=== PATIENT | male | born 1950 | race Hispanic/Latino ===

== ENCOUNTER → 2018-11-07 | Outpatient (CLI) | payer OTHER ==
[~2018-11-07] MED LIST: AMLO5TAB9 PO; ATOR40TA71 PO; CHOL100040 PO; CLOP75TA32 PO; FERR324T8 PO; FOLI0.8T2 PO; GABA-531 PO; HYDR-4154 PO; HYDR25TA PO; INSLAN SQ; INSREG SQ; ISOS30TA6 PO; LEVO125T11 PO; LOSA50TA64 PO; METOPROLOL PO; RANO500T3 PO; TRAM50TA4 PO; [UNRECOGNIZED DRUG - OTHER] PO
== END | disposition home or self-care (01) ==
LOC: SHCH 09:11
PROVIDERS: ATTEND Internal Medicine Cardiovascular Disease
DX: I73.9 Peripheral vascular disease, unspecified (principal)
CPT/HCPCS: 93925

== ENCOUNTER → 2018-12-18 | Outpatient (CLI) | payer OTHER | END | disposition home or self-care (01) | LOC: SHCH 08:58 | PROVIDERS: ATTEND Internal Medicine Cardiovascular Disease | DX: I65.23 Occlusion and stenosis of bilateral carotid arteries (principal) | CPT/HCPCS: 93880 ==

== ENCOUNTER → 2019-01-03 | Outpatient (CLI) | payer OTHER | END | disposition home or self-care (01) | LOC: SHCH 08:53 | PROVIDERS: ATTEND Internal Medicine Cardiovascular Disease | DX: I87.2 Venous insufficiency (chronic) (peripheral) (principal) | CPT/HCPCS: 93971 ==

== ENCOUNTER → 2019-11-21 | Outpatient (CLI) | payer MEDICARE ==
[~2019-11-21] MED LIST changes: +CITA-107 PO; +DOCU100T9 PO; +INSU100V12 SQ; +ISOS60TA4 PO; +VITA1CAP PO
== END | disposition home or self-care (01) ==
LOC: SHCH 13:26
PROVIDERS: ATTEND Internal Medicine Cardiovascular Disease
DX: R06.09 Other forms of dyspnea (principal)
CPT/HCPCS: 93306

== ENCOUNTER → 2019-11-24 | Outpatient (CLI) | payer MEDICARE ==
[~2019-11-24] MED LIST changes: +REGADENOSON 0.4 MG/5 ML PF SYG IVP SCH
== END | disposition home or self-care (01) ==
LOC: SHCH 08:07
PROVIDERS: ATTEND Internal Medicine Cardiovascular Disease
DX: R06.09 Other forms of dyspnea (principal); R07.9 Chest pain, unspecified
CPT/HCPCS: 78452; 93017; 96374; A9500 ×2; J2785

== ENCOUNTER 2019-11-26 05:48 | Day surgery (SDC) | payer MEDICARE ==
[~2019-11-26] VITALS: Ht 165.1 cm; Wt 86.2 kg
[~2019-11-26 05:48] MED LIST changes: +AMLO-257 PO; -AMLO5TAB9 PO; -CITA-107 PO; -DOCU100T9 PO; -INSU100V12 SQ; -ISOS60TA4 PO; -REGADENOSON 0.4 MG/5 ML PF SYG IVP SCH; -VITA1CAP PO
[2019-11-26] MEDS ORDERED: SODIUM CHLORIDE 0.9% 1000ML 1,000 ML IV ONE (06:20)
[2019-11-26 07:25] VITALS: BP 190/69
[2019-11-26] MEDS ORDERED: ISOS60TA4 PO (07:38)
[2019-11-26] MEDS ORDERED: VITA1CAP PO (07:41)
[2019-11-26] MEDS ORDERED: INSU100V12 SQ (07:41)
[2019-11-26] MEDS ORDERED: CITA-107 PO (07:41)
[2019-11-26] MEDS ORDERED: INSREG SQ (07:41)
[2019-11-26] MEDS ORDERED: DOCU100T9 PO (07:42)
[2019-11-26] MEDS ORDERED: LIDOCAINE HCL 1% 20 ML VIAL ONE (07:45)
[2019-11-26] MEDS ORDERED: PROPOFOL 10 MG/ML 20ML VIAL IV ONE (07:45)
[2019-11-26] MEDS ORDERED: EPINEPHRINE 1 MG/ML AMPULE ONE (07:56)
[2019-11-26] MEDS ORDERED: PHENYLEPHRINE HCL 10 MG/ML 1ML VIAL IV ONE (07:56)
[2019-11-26 08:15] VITALS: BP 105/48
[2019-11-26 08:20] VITALS: BP 166/63
[2019-11-26 08:25] VITALS: BP 164/55
[2019-11-26 08:30] VITALS: BP 166/63
== END 2019-11-26 08:56 | disposition home or self-care (01) ==
LOC: DAH 05:48 → ENDO 05:48
PROVIDERS: ATTEND Internal Medicine Gastroenterology
DX: D50.0 Iron deficiency anemia secondary to blood loss (chronic) (principal); D12.8 Benign neoplasm of rectum; D12.4 Benign neoplasm of descending colon; K29.50 Unspecified chronic gastritis without bleeding; K29.80 Duodenitis without bleeding; K21.9 Gastro-esophageal reflux disease without esophagitis; K22.8 Other specified diseases of esophagus; I10 Essential (primary) hypertension; I25.10 Atherosclerotic heart disease of native coronary artery without angina pectoris; M19.90 Unspecified osteoarthritis, unspecified site; E11.9 Type 2 diabetes mellitus without complications; M81.0 Age-related osteoporosis without current pathological fracture; E78.5 Hyperlipidemia, unspecified; Z95.1 Presence of aortocoronary bypass graft; Z85.038 Personal history of other malignant neoplasm of large intestine; Z90.49 Acquired absence of other specified parts of digestive tract; Z79.899 Other long term (current) drug therapy
CPT/HCPCS: 43239; 45380; 45385; 82948 ×2; 88305; 88342; A4215; A4221; A4222; A4223; A4606; A4620; A4663; J0171; J2370; J2704; J7030

== ENCOUNTER → 2020-11-04 | Outpatient (CLI) | payer OTHER ==
[~2020-11-04] MED LIST changes: -AMLO-257 PO; -CHOL100040 PO; +CITA-107 PO; +DOCU100T9 PO; -FERR324T8 PO; -FOLI0.8T2 PO; -HYDR25TA PO; -INSLAN SQ; +INSU100V12 SQ; -ISOS30TA6 PO; +ISOS60TA77 PO; -RANO500T3 PO; -TRAM50TA4 PO; +VITA1CAP PO; -[UNRECOGNIZED DRUG - OTHER] PO
== END | disposition home or self-care (01) ==
LOC: SHCH 07:33
PROVIDERS: ATTEND Internal Medicine Cardiovascular Disease
DX: I65.23 Occlusion and stenosis of bilateral carotid arteries (principal); I77.1 Stricture of artery; I73.9 Peripheral vascular disease, unspecified; R09.89 Other specified symptoms and signs involving the circulatory and respiratory systems
CPT/HCPCS: 93880; 93925

== ENCOUNTER 2023-03-30 21:43 | Inpatient (IN) | payer OTHER ==
[~2023-03-30] VITALS: Ht 165.1 cm; Wt 79.8 kg
[2023-03-30 22:10] VITALS: PULSE 88; RESP 26; O2SAT 98
[2023-03-30 22:17] VITALS: PULSE 88; RESP 22
[2023-03-30 22:22] LABS: BASOPHILS % (AUTO) 0.4 % (0.0-5.0); EOSINOPHILS % (AUTO) 1.2 % (0.0-8.0); HEMATOCRIT 28.8 % (42-54); LYMPHOCYTES % (AUTO) 16.7 % (21.0-51.0); MEAN CORPUSCULAR HEMOGLOBIN 30.8 pg (27.0-33.0); MEAN CORPUSCULAR HGB CONC 31.6 g/dL (32.0-36.0); MEAN CORPUSCULAR VOLUME 97.6 fL (79-99); MONOCYTES % (AUTO) 6.8 % (3.0-13.0); NEUTROPHILS % (AUTO) 73.4 % (40.0-77.0); PLATELET COUNT (AUTO) 226 K/uL (130-400); RED BLOOD CELL COUNT(AUTO) 2.95 MIL/uL (4.50-6.20); RED CELL DISTRIBUTION WIDTH 13.5 % (11.0-15.5); WHITE BLOOD COUNT (AUTO) 13.1 K/uL (4.8-10.8)
[2023-03-30] MEDS: NITROGLYCERIN 0.4 MG SL TAB SL PRN (22:26)
[2023-03-30] MEDS ORDERED: IPRATROPIUM/ALBUTEROL SULFATE 3 ML SOLUTION IH ONE (22:30)
[2023-03-30] MEDS ORDERED: MORPHINE 2 MG SYG IVP ONE (22:30)
[2023-03-30] MEDS ORDERED: SOLU-MEDROL 125MG VIAL IVP ONE (22:30)
[2023-03-30] MEDS ORDERED: ONDANSETRON 4MG INJ IVP ONE (22:30)
[2023-03-30 22:35] LABS: INR 0.95 (0.85-1.15); PROTHROMBIN TIME 11.1 SEC (9.6-11.6)
[2023-03-30 22:47] LABS: B-TYPE NATRIURETIC PEPTIDE 953 pg/mL (0-100)
[2023-03-30 22:58] LABS: CREATININE 3.1 mg/dL (0.5-1.5); PARTIAL THROMBOPLASTIN TIME < 20.0 SEC (26.3-35.5); POTASSIUM 5.6 mmol/L (3.5-5.1)
[2023-03-30] MEDS ORDERED: FUROSEMIDE 40MG VIAL IVP ONE (23:00)
[2023-03-30] MEDS ORDERED: NITROGLYCERIN 50MG/D5W 250ML 250 BOT IV PRN (23:00)
[2023-03-30 23:03] LABS: ALBUMIN 3.1 g/dL (3.5-5.0); MAGNESIUM 1.8 mg/dL (1.80-2.40); TOTAL PROTEIN, SERUM 7.4 g/dL (6.0-8.3)
[2023-03-31] VITALS (14 sets, daily range): BP systolic 139–174; BP diastolic 72–93; PULSE 71–102; RESP 17–28; O2SAT 94–100
[2023-03-31] MEDS ORDERED: AZITHROMYCIN 500MG+NS 250ML IVPB STA (00:20)
[2023-03-31] MEDS ORDERED: CALCIUM GLUC 1GM 1 GM in 0.9%NACL 100ML 100 ML IV ONE (00:30)
[2023-03-31] MEDS ORDERED: INSULIN HUMULIN R 100 UNIT/ML 3ML IV ONE (00:30)
[2023-03-31] MEDS ORDERED: DEXTROSE 50%-WATER 50 ML DISP.SYRIN IV ONE (00:30)
[2023-03-31] MEDS ORDERED: SODIUM BICARB 8.4% 50ML SYRINGE IVP ONE (00:30)
[2023-03-31] MEDS ORDERED: CEFTRIAXONE 1G VIAL IVPB ONE (00:30)
[2023-03-31] MEDS ORDERED: SODIUM BICARB 50MEQ 50ML VIAL 50 ML ONE (00:41)
[2023-03-31] MEDS ORDERED: CALCIUM GLUC 1GM/10ML VIAL ONE (00:44)
[2023-03-31] MEDS ORDERED: 0.9%NACL 50ML IV SCH (01:00)
[2023-03-31] MEDS ORDERED: HYDRALAZINE 20MG/ML VIAL IV PRN (01:00)
[2023-03-31] MEDS ORDERED: TEMAZEPAM 15 MG CAPSULE PO PRN (01:00)
[2023-03-31] MEDS ORDERED: CLONIDINE HCL 0.1 MG TABLET PO PRN (01:00)
[2023-03-31] MEDS ORDERED: LABETALOL 20MG SYG IV PRN (01:00)
[2023-03-31 01:48] LABS: APPEARANCE,URINE CLEAR (CLEAR); BILIRUBIN,URINE NEGATIVE (NEGATIVE); COLOR,URINE LIGHT-YELLOW (YELLOW); GLUCOSE, URINE (UA) 500 mg/dL (NEGATIVE); KETONES,URINE NEGATIVE (NEGATIVE); LEUKOCYTE ESTERASE ,URINE NEGATIVE Leu/uL (NEGATIVE); NITRATE,URINE NEGATIVE (NEGATIVE); OCCULT BLOOD,URINE NEGATIVE (NEGATIVE); PROTEIN,URINE 20 mg/dL (NEGATIVE); UROBILINOGEN,URINE 0.2 mg/dL (0.2-1.0)
[2023-03-31 01:57] LABS: BACTERIA,URINE RARE /HPF (None Seen); RBC,URINE 0-1 /HPF (0-1); SQUAMOUS EPITHELIAL CELL,UR RARE /HPF (0-2); WBC,URINE 0-1 /HPF (0-1)
[2023-03-31] MEDS ORDERED: FUROSEMIDE 40MG VIAL IV ONE (02:00)
[2023-03-31] MEDS: ZOSYN 3.375GM +NS 50ML IVPB SCH ×3 (02:33→13:17)
[2023-03-31] MEDS: SOLU-MEDROL 125MG VIAL IVP SCH ×2 (02:33→10:21)
[2023-03-31 05:41] LABS: HEMATOCRIT 27.7 % (42-54); MEAN CORPUSCULAR HEMOGLOBIN 30.6 pg (27.0-33.0); MEAN CORPUSCULAR HGB CONC 32.5 g/dL (32.0-36.0); MEAN CORPUSCULAR VOLUME 94.2 fL (79-99); RED BLOOD CELL COUNT(AUTO) 2.94 MIL/uL (4.50-6.20); RED CELL DISTRIBUTION WIDTH 13.4 % (11.0-15.5); WHITE BLOOD COUNT (AUTO) 12.2 K/uL (4.8-10.8)
[2023-03-31] MEDS: INSULIN HUMULIN R 100 UNIT/ML 3ML SQ SCH ×4 (06:11→22:37)
[2023-03-31 06:19] LABS: CREATININE 3.3 mg/dL (0.5-1.5); MAGNESIUM 1.7 mg/dL (1.80-2.40); POTASSIUM 4.9 mmol/L (3.5-5.1); THYROID STIMULATING HORMONE 2.19 uIU/mL (0.36-3.74)
[2023-03-31] MEDS ORDERED: MULT-412 PO (06:39)
[2023-03-31] MEDS ORDERED: NITR0.4T50 SL (06:39)
[2023-03-31] MEDS ORDERED: CLOP75TA32 PO (06:39)
[2023-03-31] MEDS ORDERED: INSU200I4 SQ (06:39)
[2023-03-31] MEDS ORDERED: RANO10005 PO (06:39)
[2023-03-31] MEDS ORDERED: AMLO-257 PO (06:39)
[2023-03-31] MEDS ORDERED: ozempic (06:40)
[2023-03-31] MEDS ORDERED: ENOXAPARIN SODIUM 30 MG/0.3 ML SQ SCH (09:00)
[2023-03-31] MEDS: PANTOPRAZOLE 40 MG TAB DR PO SCH (09:30)
[2023-03-31] MEDS: FUROSEMIDE 40MG VIAL IV SCH ×2 (09:31→22:31)
[2023-03-31] MEDS: IPRATROPIUM 0.5 MG/2.5 ML INH IH SCH ×2 (11:36→18:50)
[2023-03-31] MEDS ORDERED: TICAGRELOR 90 MG TABLET PO STA (11:51)
[2023-03-31] MEDS ORDERED: NITROGLYCERIN 0.4 MG SL TAB SL PRN ×2 (12:00→12:30)
[2023-03-31] MEDS ORDERED: ASPIRIN 325MG TAB PO ONE (12:00)
[2023-03-31] MEDS ORDERED: HEPARIN 5,000 UNIT VIAL ONE (12:08)
[2023-03-31] MEDS: HEPARIN 25,000 UNITS/250ML D5W 250 ML IV SCH (12:10)
[2023-03-31] MEDS ORDERED: MORPHINE 2 MG SYG ONE (12:27)
[2023-03-31] MEDS: NITROGLYCERIN 0.4 MG SL TAB SL PRN (12:29)
[2023-03-31] MEDS ORDERED: MORPHINE 2 MG SYG IVP PRN (12:30)
[2023-03-31] MEDS ORDERED: NITROGLYCERIN 1GM OINT 1 INCH/1GM TD SCH (12:30)
[2023-03-31 13:12] LABS: ABG BASE EXCESS -4.4 mmol/L (-2.0-3.0); ABG HCO3 19.9 mmol/L (21.0-28.0); ABG PCO2 35 mmHg (35-48)
[2023-03-31 14:46] LABS: AMPHET/METH SCREEN,URINE NEGATIVE (NEGATIVE); BARBITURATE SCREEN, URINE NEGATIVE (NEGATIVE); BENZODIAZEPINES SCREEN,URINE NEGATIVE (NEGATIVE); CANNABINOID SCREEN,URINE NEGATIVE (NEGATIVE); COCAINE SCREEN,URINE NEGATIVE (NEGATIVE); OPIATE SCREEN,URINE NEGATIVE (NEGATIVE); PHENCYCLIDINE SCREEN,URINE NEGATIVE (NEGATIVE)
[2023-03-31 18:25] LABS: INR 1.06 (0.85-1.15); PROTHROMBIN TIME 12.3 SEC (9.6-11.6)
[2023-03-31 18:45] LABS: PARTIAL THROMBOPLASTIN TIME 106.2 SEC (26.3-35.5)
[2023-03-31] MEDS: ATORVASTATIN 40 MG TABLET PO SCH (22:30)
[2023-03-31] MEDS: RANOLAZINE 500 MG TAB.SR.12H PO SCH (22:30)
[2023-03-31] MEDS: TICAGRELOR 90 MG TABLET PO SCH (22:31)
[2023-04-01] VITALS (16 sets, daily range): BP systolic 109–153; BP diastolic 62–92; PULSE 73–83; RESP 17–20; O2SAT 94–100
[2023-04-01] MEDS: IPRATROPIUM 0.5 MG/2.5 ML INH IH SCH ×4 (00:33→18:31)
[2023-04-01 02:17] LABS: BASOPHILS % (AUTO) 0.1 % (0.0-5.0); HEMATOCRIT 27.6 % (42-54); MEAN CORPUSCULAR HEMOGLOBIN 31.4 pg (27.0-33.0); MEAN CORPUSCULAR VOLUME 95.2 fL (79-99); MONOCYTES % (AUTO) 6.9 % (3.0-13.0); NEUTROPHILS % (AUTO) 87.5 % (40.0-77.0); PLATELET COUNT (AUTO) 208 K/uL (130-400); RED CELL DISTRIBUTION WIDTH 13.5 % (11.0-15.5); WHITE BLOOD COUNT (AUTO) 20.9 K/uL (4.8-10.8)
[2023-04-01 02:35] LABS: CREATININE 3.5 mg/dL (0.5-1.5); POTASSIUM 5.1 mmol/L (3.5-5.1)
[2023-04-01 02:42] LABS: B-TYPE NATRIURETIC PEPTIDE 2010 pg/mL (0-100)
[2023-04-01 02:51] LABS: INR 1.03 (0.85-1.15); PROTHROMBIN TIME 11.9 SEC (9.6-11.6)
[2023-04-01 02:52] LABS: PARTIAL THROMBOPLASTIN TIME 54.2 SEC (26.3-35.5)
[2023-04-01] MEDS: LEVOTHYROXINE 125 MCG TABLET PO SCH (05:55)
[2023-04-01] MEDS: INSULIN HUMULIN R 100 UNIT/ML 3ML SQ SCH ×4 (08:57→21:00)
[2023-04-01] MEDS: FUROSEMIDE 40MG VIAL IV SCH ×2 (08:59→22:55)
[2023-04-01] MEDS: RANOLAZINE 500 MG TAB.SR.12H PO SCH ×2 (08:59→22:55)
[2023-04-01] MEDS: PANTOPRAZOLE 40 MG TAB DR PO SCH (09:00)
[2023-04-01] MEDS ORDERED: CLOPIDOGREL 75MG TAB PO SCH (09:00)
[2023-04-01] MEDS: MULTIVITAMIN WITH MINERALS TABLET PO SCH (09:00)
[2023-04-01] MEDS: TICAGRELOR 90 MG TABLET PO SCH ×2 (09:00→22:55)
[2023-04-01] MEDS: ASPIRIN 81 MG EC TAB PO SCH (09:00)
[2023-04-01] MEDS: CITALOPRAM 20 MG TABLET PO SCH (09:00)
[2023-04-01] MEDS ORDERED: ISOSORBIDE MONO 60MG SR TAB PO SCH (09:00)
[2023-04-01] MEDS: VITAMIN B COMPLEX 1 CAPSULE PO SCH (09:00)
[2023-04-01] MEDS: METOPROLOL SUCCINATE 50 MG TAB.SR.24H PO SCH (09:00)
[2023-04-01 10:50] LABS: INR 1.03 (0.85-1.15); PROTHROMBIN TIME 11.9 SEC (9.6-11.6)
[2023-04-01 10:51] LABS: PARTIAL THROMBOPLASTIN TIME 53.2 SEC (26.3-35.5)
[2023-04-01] MEDS: ATORVASTATIN 40 MG TABLET PO SCH (22:55)
[2023-04-02] VITALS (16 sets, daily range): BP systolic 84–166; BP diastolic 55–83; PULSE 65–80; RESP 18–20; O2SAT 94–100
[2023-04-02] MEDS: IPRATROPIUM 0.5 MG/2.5 ML INH IH SCH ×5 (00:42→23:40)
[2023-04-02 04:47] LABS: BASOPHILS % (AUTO) 0.1 % (0.0-5.0); EOSINOPHILS % (AUTO) 0.1 % (0.0-8.0); HEMATOCRIT 28.6 % (42-54); LYMPHOCYTES % (AUTO) 4.8 % (21.0-51.0); MEAN CORPUSCULAR HEMOGLOBIN 30.3 pg (27.0-33.0); MEAN CORPUSCULAR HGB CONC 32.2 g/dL (32.0-36.0); MEAN CORPUSCULAR VOLUME 94.1 fL (79-99); MONOCYTES % (AUTO) 8.1 % (3.0-13.0); NEUTROPHILS % (AUTO) 85.3 % (40.0-77.0); PLATELET COUNT (AUTO) 240 K/uL (130-400); RED BLOOD CELL COUNT(AUTO) 3.04 MIL/uL (4.50-6.20); RED CELL DISTRIBUTION WIDTH 13.3 % (11.0-15.5); WHITE BLOOD COUNT (AUTO) 15.2 K/uL (4.8-10.8)
[2023-04-02 05:03] LABS: CREATININE 3.4 mg/dL (0.5-1.5); POTASSIUM 5.3 mmol/L (3.5-5.1)
[2023-04-02 05:41] LABS: B-TYPE NATRIURETIC PEPTIDE 1330 pg/mL (0-100)
[2023-04-02 06:26] LABS: INR 1.03 (0.85-1.15); PROTHROMBIN TIME 11.9 SEC (9.6-11.6)
[2023-04-02 06:27] LABS: PARTIAL THROMBOPLASTIN TIME 86.5 SEC (26.3-35.5)
[2023-04-02] MEDS: LEVOTHYROXINE 125 MCG TABLET PO SCH (06:53)
[2023-04-02] MEDS: INSULIN HUMULIN R 100 UNIT/ML 3ML SQ SCH ×4 (08:37→20:56)
[2023-04-02] MEDS: METOPROLOL SUCCINATE 50 MG TAB.SR.24H PO SCH (08:38)
[2023-04-02] MEDS: PANTOPRAZOLE 40 MG TAB DR PO SCH (08:39)
[2023-04-02] MEDS: MULTIVITAMIN WITH MINERALS TABLET PO SCH (08:39)
[2023-04-02] MEDS: ASPIRIN 81 MG EC TAB PO SCH (08:39)
[2023-04-02] MEDS: TICAGRELOR 90 MG TABLET PO SCH ×2 (08:39→20:50)
[2023-04-02] MEDS: RANOLAZINE 500 MG TAB.SR.12H PO SCH ×2 (08:39→20:51)
[2023-04-02] MEDS: CITALOPRAM 20 MG TABLET PO SCH (08:39)
[2023-04-02] MEDS: VITAMIN B COMPLEX 1 CAPSULE PO SCH (08:39)
[2023-04-02] MEDS: HEPARIN 25,000 UNITS/250ML D5W 250 ML IV SCH (13:20)
[2023-04-02] MEDS: ATORVASTATIN 40 MG TABLET PO SCH (20:50)
[2023-04-03] VITALS (12 sets, daily range): BP systolic 106–154; BP diastolic 56–81; PULSE 61–80; RESP 18–20; O2SAT 95–100
[2023-04-03 03:38] LABS: BASOPHILS % (AUTO) 0.2 % (0.0-5.0); EOSINOPHILS % (AUTO) 0.2 % (0.0-8.0); HEMATOCRIT 26.3 % (42-54); LYMPHOCYTES % (AUTO) 7.3 % (21.0-51.0); MEAN CORPUSCULAR HEMOGLOBIN 30.3 pg (27.0-33.0); MEAN CORPUSCULAR HGB CONC 32.7 g/dL (32.0-36.0); MEAN CORPUSCULAR VOLUME 92.6 fL (79-99); NEUTROPHILS % (AUTO) 82.1 % (40.0-77.0); PLATELET COUNT (AUTO) 226 K/uL (130-400); RED BLOOD CELL COUNT(AUTO) 2.84 MIL/uL (4.50-6.20); WHITE BLOOD COUNT (AUTO) 13.3 K/uL (4.8-10.8)
[2023-04-03 03:55] LABS: CREATININE 3.2 mg/dL (0.5-1.5); POTASSIUM 4.2 mmol/L (3.5-5.1)
[2023-04-03 04:05] LABS: B-TYPE NATRIURETIC PEPTIDE 851 pg/mL (0-100)
[2023-04-03] MEDS: IPRATROPIUM 0.5 MG/2.5 ML INH IH SCH ×4 (06:41→23:05)
[2023-04-03] MEDS: LEVOTHYROXINE 125 MCG TABLET PO SCH (06:45)
[2023-04-03] MEDS: INSULIN HUMULIN R 100 UNIT/ML 3ML SQ SCH ×4 (07:30→21:00)
[2023-04-03] MEDS: RANOLAZINE 500 MG TAB.SR.12H PO SCH (09:10)
[2023-04-03] MEDS: CITALOPRAM 20 MG TABLET PO SCH (09:10)
[2023-04-03] MEDS: ASPIRIN 81 MG EC TAB PO SCH (09:10)
[2023-04-03] MEDS: TICAGRELOR 90 MG TABLET PO SCH (09:10)
[2023-04-03] MEDS: PANTOPRAZOLE 40 MG TAB DR PO SCH (09:10)
[2023-04-03] MEDS: MULTIVITAMIN WITH MINERALS TABLET PO SCH (09:10)
[2023-04-03] MEDS: METOPROLOL SUCCINATE 50 MG TAB.SR.24H PO SCH (09:10)
[2023-04-03] MEDS: VITAMIN B COMPLEX 1 CAPSULE PO SCH (09:11)
[2023-04-03] MEDS ORDERED: CLOPIDOGREL 300MG TAB PO ONE (11:00)
[2023-04-03] MEDS: ONDANSETRON 4MG INJ IVP PRN (17:16)
[2023-04-03] MEDS: HEPARIN 25,000 UNITS/250ML D5W 250 ML IV SCH (18:22)
[2023-04-03] MEDS: SACUBITRIL/VALSARTAN 1 EACH TABLET PO SCH (20:59)
[2023-04-03] MEDS: DOCUSATE SODIUM 100 MG CAP PO SCH (20:59)
[2023-04-03] MEDS: ATORVASTATIN 40 MG TABLET PO SCH (20:59)
[2023-04-04] VITALS (16 sets, daily range): BP systolic 126–172; BP diastolic 38–80; PULSE 59–69; RESP 18–20; O2SAT 88–100
[2023-04-04 04:15] LABS: HEMATOCRIT 24.1 % (42-54); MEAN CORPUSCULAR HEMOGLOBIN 30.4 pg (27.0-33.0); MEAN CORPUSCULAR HGB CONC 32.8 g/dL (32.0-36.0); MEAN CORPUSCULAR VOLUME 92.7 fL (79-99); RED BLOOD CELL COUNT(AUTO) 2.6 MIL/uL (4.50-6.20); RED CELL DISTRIBUTION WIDTH 13.1 % (11.0-15.5); WHITE BLOOD COUNT (AUTO) 10.9 K/uL (4.8-10.8)
[2023-04-04 04:37] LABS: INR 1.04 (0.85-1.15)
[2023-04-04 04:39] LABS: PARTIAL THROMBOPLASTIN TIME 59.7 SEC (26.3-35.5)
[2023-04-04 04:46] LABS: ALBUMIN 2.8 g/dL (3.5-5.0); CREATININE 3.3 mg/dL (0.5-1.5); MAGNESIUM 2.2 mg/dL (1.80-2.40); PHOSPHORUS 5.5 mg/dL (2.5-4.9); POTASSIUM 4.1 mmol/L (3.5-5.1); TOTAL PROTEIN, SERUM 6.8 g/dL (6.0-8.3)
[2023-04-04] MEDS: LEVOTHYROXINE 125 MCG TABLET PO SCH (05:35)
[2023-04-04] MEDS: INSULIN HUMULIN R 100 UNIT/ML 3ML SQ SCH ×4 (06:28→23:25)
[2023-04-04] MEDS: IPRATROPIUM 0.5 MG/2.5 ML INH IH SCH ×4 (07:36→23:39)
[2023-04-04] MEDS: MULTIVITAMIN WITH MINERALS TABLET PO SCH (11:41)
[2023-04-04] MEDS: VITAMIN B COMPLEX 1 CAPSULE PO SCH (11:41)
[2023-04-04] MEDS: PANTOPRAZOLE 40 MG TAB DR PO SCH (11:41)
[2023-04-04] MEDS: SACUBITRIL/VALSARTAN 1 EACH TABLET PO SCH ×2 (11:41→23:21)
[2023-04-04] MEDS: POLYETHYLENE GLYCOL 3350 17 GM POWD.PACK PO SCH (11:41)
[2023-04-04] MEDS: ASPIRIN 81 MG EC TAB PO SCH (11:41)
[2023-04-04] MEDS: DOCUSATE SODIUM 100 MG CAP PO SCH ×3 (11:42→23:22)
[2023-04-04] MEDS: CITALOPRAM 20 MG TABLET PO SCH (11:42)
[2023-04-04] MEDS: CLOPIDOGREL 75MG TAB PO SCH (11:42)
[2023-04-04] MEDS: METOPROLOL SUCCINATE 50 MG TAB.SR.24H PO SCH (11:42)
[2023-04-04] MEDS: ATORVASTATIN 40 MG TABLET PO SCH (23:22)
[2023-04-05] VITALS (13 sets, daily range): BP systolic 124–172; BP diastolic 52–75; PULSE 60–68; RESP 18–20; O2SAT 100
[2023-04-05 03:56] LABS: ABG BASE EXCESS 1.5 mmol/L (-2.0-3.0); ABG HCO3 24.9 mmol/L (21.0-28.0); ABG OXYGEN SATURATION 99.2 % (95.0-99.0); ABG PCO2 36 mmHg (35-48)
[2023-04-05 04:30] LABS: HEMATOCRIT 23.3 % (42-54); MEAN CORPUSCULAR HEMOGLOBIN 30.6 pg (27.0-33.0); MEAN CORPUSCULAR HGB CONC 33.9 g/dL (32.0-36.0); MEAN CORPUSCULAR VOLUME 90.3 fL (79-99); RED BLOOD CELL COUNT(AUTO) 2.58 MIL/uL (4.50-6.20); RED CELL DISTRIBUTION WIDTH 12.9 % (11.0-15.5); WHITE BLOOD COUNT (AUTO) 10.5 K/uL (4.8-10.8)
[2023-04-05 04:44] LABS: INR 0.99 (0.85-1.15); PROTHROMBIN TIME 11.5 SEC (9.6-11.6)
[2023-04-05 04:45] LABS: PARTIAL THROMBOPLASTIN TIME 45.6 SEC (26.3-35.5)
[2023-04-05 05:02] LABS: CREATININE 3.1 mg/dL (0.5-1.5); MAGNESIUM 2.4 mg/dL (1.80-2.40); PHOSPHORUS 5.1 mg/dL (2.5-4.9); POTASSIUM 3.9 mmol/L (3.5-5.1)
[2023-04-05] MEDS: INSULIN HUMULIN R 100 UNIT/ML 3ML SQ SCH ×4 (07:21→20:57)
[2023-04-05] MEDS: IPRATROPIUM 0.5 MG/2.5 ML INH IH SCH ×4 (07:22→23:15)
[2023-04-05] MEDS: LEVOTHYROXINE 125 MCG TABLET PO SCH (07:23)
[2023-04-05] MEDS: HEPARIN 25,000 UNITS/250ML D5W 250 ML IV SCH (07:33)
[2023-04-05] MEDS: POLYETHYLENE GLYCOL 3350 17 GM POWD.PACK PO SCH ×2 (08:28→20:49)
[2023-04-05] MEDS: METOPROLOL SUCCINATE 50 MG TAB.SR.24H PO SCH (08:29)
[2023-04-05] MEDS: SACUBITRIL/VALSARTAN 1 EACH TABLET PO SCH ×2 (08:29→20:49)
[2023-04-05] MEDS: EMPAGLIFLOZIN 10MG TABLET PO SCH (08:29)
[2023-04-05] MEDS: ASPIRIN 81 MG EC TAB PO SCH (08:29)
[2023-04-05] MEDS: CITALOPRAM 20 MG TABLET PO SCH (08:29)
[2023-04-05] MEDS: MULTIVITAMIN WITH MINERALS TABLET PO SCH (08:29)
[2023-04-05] MEDS: CLOPIDOGREL 75MG TAB PO SCH (08:29)
[2023-04-05] MEDS: PANTOPRAZOLE 40 MG TAB DR PO SCH (08:29)
[2023-04-05] MEDS: DOCUSATE SODIUM 100 MG CAP PO SCH ×3 (08:29→20:49)
[2023-04-05] MEDS: VITAMIN B COMPLEX 1 CAPSULE PO SCH (08:29)
[2023-04-05 14:52] LABS: HEMATOCRIT 24.4 % (42-54)
[2023-04-05] MEDS: ATORVASTATIN 40 MG TABLET PO SCH (20:49)
[2023-04-05 22:53] LABS: HEMATOCRIT 24.7 % (42-54)
[2023-04-06] VITALS (10 sets, daily range): BP systolic 105–144; BP diastolic 51–69; PULSE 66–78; RESP 18–20; O2SAT 94–100
[2023-04-06 04:02] LABS: BASOPHILS % (AUTO) 0.3 % (0.0-5.0); EOSINOPHILS % (AUTO) 1.9 % (0.0-8.0); HEMATOCRIT 23.9 % (42-54); LYMPHOCYTES % (AUTO) 9.4 % (21.0-51.0); MEAN CORPUSCULAR HEMOGLOBIN 30.5 pg (27.0-33.0); MEAN CORPUSCULAR HGB CONC 32.6 g/dL (32.0-36.0); MEAN CORPUSCULAR VOLUME 93.4 fL (79-99); MONOCYTES % (AUTO) 12.3 % (3.0-13.0); NEUTROPHILS % (AUTO) 73.7 % (40.0-77.0); PLATELET COUNT (AUTO) 254 K/uL (130-400); RED BLOOD CELL COUNT(AUTO) 2.56 MIL/uL (4.50-6.20); RED CELL DISTRIBUTION WIDTH 12.8 % (11.0-15.5); WHITE BLOOD COUNT (AUTO) 11.9 K/uL (4.8-10.8)
[2023-04-06 04:10] LABS: CREATININE 3.1 mg/dL (0.5-1.5); POTASSIUM 4.2 mmol/L (3.5-5.1)
[2023-04-06] MEDS: LEVOTHYROXINE 125 MCG TABLET PO SCH (05:47)
[2023-04-06 06:34] LABS: HEMATOCRIT 23.9 % (42-54)
[2023-04-06] MEDS: INSULIN HUMULIN R 100 UNIT/ML 3ML SQ SCH ×3 (06:40→16:37)
[2023-04-06] MEDS: IPRATROPIUM 0.5 MG/2.5 ML INH IH SCH ×2 (06:44→11:37)
[2023-04-06] MEDS: MULTIVITAMIN WITH MINERALS TABLET PO SCH (08:57)
[2023-04-06] MEDS: POLYETHYLENE GLYCOL 3350 17 GM POWD.PACK PO SCH (08:57)
[2023-04-06] MEDS: EMPAGLIFLOZIN 10MG TABLET PO SCH (08:57)
[2023-04-06] MEDS: CLOPIDOGREL 75MG TAB PO SCH (08:57)
[2023-04-06] MEDS: DOCUSATE SODIUM 100 MG CAP PO SCH ×2 (08:57→13:31)
[2023-04-06] MEDS: METOPROLOL SUCCINATE 50 MG TAB.SR.24H PO SCH (08:57)
[2023-04-06] MEDS: CITALOPRAM 20 MG TABLET PO SCH (08:57)
[2023-04-06] MEDS: VITAMIN B COMPLEX 1 CAPSULE PO SCH (08:57)
[2023-04-06] MEDS: ASPIRIN 81 MG EC TAB PO SCH (08:57)
[2023-04-06] MEDS: PANTOPRAZOLE 40 MG TAB DR PO SCH (08:58)
[2023-04-06] MEDS ORDERED: SPIRONOLACTONE 25 MG TAB PO SCH (09:00)
[2023-04-06] MEDS ORDERED: LACTULOSE 20 GM/30 ML UDCUP PO PRN (09:30)
[2023-04-06] MEDS: SACUBITRIL/VALSARTAN 1 EACH TABLET PO SCH (11:17)
[2023-04-06] MEDS: ONDANSETRON 4MG INJ IVP PRN (13:31)
[2023-04-06 14:05] LABS: HEMATOCRIT 26.5 % (42-54)
[2023-04-06] MEDS ORDERED: SACU1TAB PO (17:39)
[2023-04-06] MEDS ORDERED: SPIR25TA6 PO (17:39)
[2023-04-06] MEDS ORDERED: AEC81 PO (17:39)
== END 2023-04-06 18:24 | disposition home or self-care (01) | DRG 280 ==
LOC: EDH 21:43 → EDHIP 03-31 00:53 → 2AH 03-31 05:47
PROVIDERS: ADMIT Internal Medicine Critical Care Medicine; ATTEND Internal Medicine Critical Care Medicine
PROC: 5A09357 Assistance with Respiratory Ventilation, Less than 24 Consecutive Hours, Continuous Positive Airway Pressure (ICD-10-PCS; principal; 2023-03-30)
PROC: 5A09357 Assistance with Respiratory Ventilation, Less than 24 Consecutive Hours, Continuous Positive Airway Pressure (ICD-10-PCS; 2023-03-31)
PROC: 5A09357 Assistance with Respiratory Ventilation, Less than 24 Consecutive Hours, Continuous Positive Airway Pressure (ICD-10-PCS; 2023-04-01)
PROC: 5A09357 Assistance with Respiratory Ventilation, Less than 24 Consecutive Hours, Continuous Positive Airway Pressure (ICD-10-PCS; 2023-04-02)
PROC: 5A09357 Assistance with Respiratory Ventilation, Less than 24 Consecutive Hours, Continuous Positive Airway Pressure (ICD-10-PCS; 2023-04-03)
PROC: 5A09357 Assistance with Respiratory Ventilation, Less than 24 Consecutive Hours, Continuous Positive Airway Pressure (ICD-10-PCS; 2023-04-04)
PROC: 5A09357 Assistance with Respiratory Ventilation, Less than 24 Consecutive Hours, Continuous Positive Airway Pressure (ICD-10-PCS; 2023-04-05)
DX: I21.4 Non-ST elevation (NSTEMI) myocardial infarction (principal); I50.33 Acute on chronic diastolic (congestive) heart failure; J96.01 Acute respiratory failure with hypoxia; N18.6 End stage renal disease; N17.9 Acute kidney failure, unspecified; I13.2 Hypertensive heart and chronic kidney disease with heart failure and with stage 5 chronic kidney disease, or end stage renal disease; Z20.822 Contact with and (suspected) exposure to COVID-19; E11.22 Type 2 diabetes mellitus with diabetic chronic kidney disease; D63.1 Anemia in chronic kidney disease; D72.829 Elevated white blood cell count, unspecified; E03.9 Hypothyroidism, unspecified; E11.40 Type 2 diabetes mellitus with diabetic neuropathy, unspecified; E11.51 Type 2 diabetes mellitus with diabetic peripheral angiopathy without gangrene; E11.65 Type 2 diabetes mellitus with hyperglycemia; E66.09 Other obesity due to excess calories; E78.5 Hyperlipidemia, unspecified; I25.10 Atherosclerotic heart disease of native coronary artery without angina pectoris; I87.2 Venous insufficiency (chronic) (peripheral); J44.9 Chronic obstructive pulmonary disease, unspecified; Z82.49 Family history of ischemic heart disease and other diseases of the circulatory system; Z83.3 Family history of diabetes mellitus; Z85.038 Personal history of other malignant neoplasm of large intestine; Z89.512 Acquired absence of left leg below knee; Z91.158 Patient's noncompliance with renal dialysis for other reason; Z95.1 Presence of aortocoronary bypass graft; Z99.2 Dependence on renal dialysis; Z68.29 Body mass index [BMI] 29.0-29.9, adult
CPT/HCPCS: 36415; 36600; 71045; 80048; 80053; 80305; 81001; 82550; 82803; 82948; 83605; 83735; 83874; 83880; 84100; 84145; 84443; 84484; 85014; 85018; 85025; 85027; 85378; 85610; 85730; 87635; 87804; 93005; 93306; 94640; 94660; 94664; 97039; A4344; C9803; G0378; J0456; J0610; J0696; J1644; J1650; J1815; J1940; J2270; J2405; J2543; J2930; J3490; J7070

== ENCOUNTER → 2023-04-09 | Outpatient (CLI) | payer OTHER ==
[~2023-04-09] MED LIST changes: +AEC81 PO; -DOCU100T9 PO; -HYDR-4154 PO; -INSREG SQ; -INSU100V12 SQ; +INSU200I4 SQ; -LOSA50TA64 PO; +MULT-412 PO; +NITR0.4T50 SL; +RANO10005 PO; +SACU1TAB PO; +SPIR25TA6 PO; +ozempic
[2023-04-09 12:10] LABS: BASOPHILS % (AUTO) 0.4 % (0.0-5.0); EOSINOPHILS % (AUTO) 4.6 % (0.0-8.0); LYMPHOCYTES % (AUTO) 14.3 % (21.0-51.0); MEAN CORPUSCULAR HEMOGLOBIN 30.9 pg (27.0-33.0); MEAN CORPUSCULAR HGB CONC 32.1 g/dL (32.0-36.0); MEAN CORPUSCULAR VOLUME 96.4 fL (79-99); MONOCYTES % (AUTO) 10.3 % (3.0-13.0); NEUTROPHILS % (AUTO) 66.7 % (40.0-77.0); PLATELET COUNT (AUTO) 294 K/uL (130-400); RED BLOOD CELL COUNT(AUTO) 2.49 MIL/uL (4.50-6.20); RED CELL DISTRIBUTION WIDTH 13.2 % (11.0-15.5); WHITE BLOOD COUNT (AUTO) 7.8 K/uL (4.8-10.8)
[2023-04-09 12:30] LABS: ALBUMIN 2.6 g/dL (3.5-5.0); CREATININE 3.3 mg/dL (0.5-1.5); POTASSIUM 5.5 mmol/L (3.5-5.1)
== END | disposition home or self-care (01) ==
LOC: LAB 08:53
PROVIDERS: ATTEND Internal Medicine Cardiovascular Disease
DX: I11.0 Hypertensive heart disease with heart failure (principal); I50.31 Acute diastolic (congestive) heart failure
CPT/HCPCS: 36415; 80053; 80061; 85025

== ENCOUNTER → 2023-04-16 | Outpatient (CLI) | payer OTHER ==
[2023-04-16 12:13] LABS: BASOPHILS # (AUTO) 0.05 K/uL (0.00-0.20); BASOPHILS % (AUTO) 0.8 % (0.0-5.0); EOSINOPHILS # (AUTO) 0.16 K/uL (0.00-0.70); EOSINOPHILS % (AUTO) 2.6 % (0.0-8.0); HEMATOCRIT 24.8 % (42-54); IMMATURE GRANULOCYTE ABSOLUTE 0.15 K/uL (0-1); LYMPHOCYTES # (AUTO) 1.1 K/uL (1.0-4.8); LYMPHOCYTES % (AUTO) 18.3 % (21.0-51.0); MEAN CORPUSCULAR HEMOGLOBIN 30.7 pg (27.0-33.0); MEAN CORPUSCULAR VOLUME 98.8 fL (79-99); MONOCYTES # (AUTO) 0.5 K/uL (0.1-1.0); MONOCYTES % (AUTO) 8.3 % (3.0-13.0); NEUTROPHILS # (AUTO) 4.2 K/uL (1.8-7.7); NEUTROPHILS % (AUTO) 67.6 % (40.0-77.0); PLATELET COUNT (AUTO) 271 K/uL (130-400); RED BLOOD CELL COUNT(AUTO) 2.51 MIL/uL (4.50-6.20); RED CELL DISTRIBUTION WIDTH 14.9 % (11.0-15.5); WHITE BLOOD COUNT (AUTO) 6.2 K/uL (4.8-10.8)
[2023-04-16 12:26] LABS: ALBUMIN 2.8 g/dL (3.5-5.0); BILIRUBIN,TOTAL 0.3 mg/dL (0.2-1.0); CREATININE 3.1 mg/dL (0.5-1.5); TOTAL PROTEIN, SERUM 6.5 g/dL (6.0-8.3)
[2023-04-16 12:27] LABS: POTASSIUM 6.1 mmol/L (3.5-5.1)
[2023-04-16 12:49] LABS: CHOLESTEROL 94 mg/dL (<200); HDL CHOLESTEROL 35 mg/dL (29-71); LDL DIRECT 48 mg/dL (0-99); TRIGLYCERIDES 81 mg/dL (30-200)
== END | disposition home or self-care (01) ==
LOC: LAB 08:34
PROVIDERS: ATTEND Internal Medicine Cardiovascular Disease
DX: I11.0 Hypertensive heart disease with heart failure (principal); I50.31 Acute diastolic (congestive) heart failure
CPT/HCPCS: 36415; 80053; 80061; 85025

== ENCOUNTER → 2023-04-23 | Outpatient (CLI) | payer OTHER | END | disposition home or self-care (01) | LOC: LAB 09:36 | PROVIDERS: ATTEND Internal Medicine Cardiovascular Disease | DX: I10 Essential (primary) hypertension (principal) | CPT/HCPCS: 36415; 80048 ==

== ENCOUNTER → 2023-04-30 | Outpatient (CLI) | payer OTHER ==
[2023-04-30 12:23] LABS: CREATININE 3.7 mg/dL (0.5-1.5); POTASSIUM 5.6 mmol/L (3.5-5.1)
== END | disposition home or self-care (01) ==
LOC: LAB 08:26
PROVIDERS: ATTEND Internal Medicine Cardiovascular Disease
DX: I25.118 Atherosclerotic heart disease of native coronary artery with other forms of angina pectoris (principal)
CPT/HCPCS: 36415; 80048

== ENCOUNTER → 2023-05-01 | Outpatient (CLI) | payer OTHER | END | disposition home or self-care (01) | LOC: SHCH 07:39 | PROVIDERS: ATTEND Internal Medicine Cardiovascular Disease | DX: I87.2 Venous insufficiency (chronic) (peripheral) (principal); I70.201 Unspecified atherosclerosis of native arteries of extremities, right leg; Z89.512 Acquired absence of left leg below knee | CPT/HCPCS: 93925; 93970; 93978 ==

== ENCOUNTER → 2023-05-17 | Outpatient (CLI) | payer OTHER ==
[2023-05-17 12:27] LABS: CREATININE 2.6 mg/dL (0.5-1.5); POTASSIUM 5.2 mmol/L (3.5-5.1)
== END | disposition home or self-care (01) ==
LOC: LAB 08:20
PROVIDERS: ATTEND Internal Medicine Cardiovascular Disease
DX: I25.10 Atherosclerotic heart disease of native coronary artery without angina pectoris (principal)
CPT/HCPCS: 36415; 80048